=== PATIENT | female | born 2000 | race Caucasian/White ===

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

== ENCOUNTER 2021-04-14 14:36 | Emergency (ER) | payer OTHER ==
[~2021-04-14] VITALS: Ht 157.5 cm; Wt 95.7 kg
[2021-04-14 16:55] LABS: RSV AMPLIFICATION NEGATIVE (NEGATIVE)
[2021-04-14] MEDS ORDERED: PROAAER10 INH ×2 (18:17→18:19)
[2021-04-14] MEDS ORDERED: MEDR4PAK PO (18:19)
[2021-04-14 18:35] VITALS: BP 129/68
== END 2021-04-14 18:37 | disposition home or self-care (01) ==
LOC: M ED 14:36
DX: J45.901 Unspecified asthma with (acute) exacerbation (principal); R09.81 Nasal congestion; K21.9 Gastro-esophageal reflux disease without esophagitis; F17.200 Nicotine dependence, unspecified, uncomplicated; Z79.51 Long term (current) use of inhaled steroids

== ENCOUNTER 2022-01-25 13:53 | Emergency (ER) | payer MEDICAID, OTHER ==
[~2022-01-25] VITALS: Ht 157.5 cm; Wt 100.0 kg
[~2022-01-25 13:53] MED LIST changes: +MEDR4PAK PO; +PROAAER10 INH
[2022-01-25] MEDS ORDERED: AMPH1CAP14 (14:01)
[2022-01-25] MEDS ORDERED: SERT50TA29 (14:01)
[2022-01-25] MEDS ORDERED: HYDR-643 (14:01)
[2022-01-25 17:29] VITALS: BP 128/80
== END 2022-01-25 17:31 | disposition home or self-care (01) ==
LOC: M ED 13:53
DX: S60.151A Contusion of right little finger with damage to nail, initial encounter (principal); W23.0XXA Caught, crushed, jammed, or pinched between moving objects, initial encounter; F41.9 Anxiety disorder, unspecified; F32.A Depression, unspecified; J45.909 Unspecified asthma, uncomplicated; F90.9 Attention-deficit hyperactivity disorder, unspecified type; Z79.51 Long term (current) use of inhaled steroids; Z79.899 Other long term (current) drug therapy

== ENCOUNTER 2022-04-15 13:32 | Emergency (ER) | payer OTHER ==
[~2022-04-15] VITALS: Ht 157.5 cm; Wt 90.9 kg
[~2022-04-15 13:32] MED LIST changes: +AMPH1CAP14; +SERT50TA29
[2022-04-15] MEDS ORDERED: predniSONE 20 MG TAB PO ONE (19:55)
[2022-04-15] MEDS ORDERED: COMBIVENT RESPIMAT 100-20MCG INHALER 4GM INH ONE (19:55)
[2022-04-15] MEDS ORDERED: PRED20TA PO (20:02)
[2022-04-15] MEDS ORDERED: VENTAER INH (20:02)
[2022-04-15] MEDS ORDERED: ALBU2.5V10 NEB (20:02)
[2022-04-15 20:25] VITALS: BP 125/75
== END 2022-04-15 20:26 | disposition home or self-care (01) ==
LOC: M ED 13:32
DX: J98.01 Acute bronchospasm (principal); Z79.51 Long term (current) use of inhaled steroids; Z79.899 Other long term (current) drug therapy
CPT/HCPCS: 71046; 93005; 94640; 99284; J7512

== ENCOUNTER 2023-11-30 11:40 | Emergency (ER) | payer OTHER, SELFPAY ==
[~2023-11-30] VITALS: Ht 157.5 cm; Wt 104.5 kg
[~2023-11-30 11:40] MED LIST changes: +ALBU2.5V10 NEB; +PRED20TA PO; +VENTAER INH
[2023-11-30 14:18] VITALS: BP 150/98; TEMP 98.5; O2SAT 98
== END 2023-11-30 14:42 | disposition home or self-care (01) ==
LOC: M ED 11:40
DX: S01.01XA Laceration without foreign body of scalp, initial encounter (principal); W20.8XXA Other cause of strike by thrown, projected or falling object, initial encounter; J45.909 Unspecified asthma, uncomplicated; K21.9 Gastro-esophageal reflux disease without esophagitis; F10.10 Alcohol abuse, uncomplicated; Z79.52 Long term (current) use of systemic steroids; Y92.9 Unspecified place or not applicable; Y93.89 Activity, other specified; Y99.9 Unspecified external cause status

== ENCOUNTER 2023-12-06 11:20 | Emergency (ER) | payer SELFPAY ==
[~2023-12-06] VITALS: Ht 157.5 cm; Wt 111.1 kg
[2023-12-06 14:17] VITALS: BP 136/80; TEMP 97.4; O2SAT 97
== END 2023-12-06 14:16 | disposition home or self-care (01) ==
LOC: M ED 11:20
DX: Z48.02 Encounter for removal of sutures (principal); J45.909 Unspecified asthma, uncomplicated; K21.9 Gastro-esophageal reflux disease without esophagitis; Z79.51 Long term (current) use of inhaled steroids